=== PATIENT | female | born 1990 | race Caucasian/White ===

== ENCOUNTER 2021-12-04 14:48 | Emergency (ER) | payer MEDICAID ==
[2021-12-04 18:47] LABS: CARBON DIOXIDE,CO2 25.7 mmol/L (21.0-32.0); POTASSIUM,K 3.6 mmol/L (3.5-5.1)
== END 2021-12-04 18:23 | disposition home or self-care (01) ==
LOC: MW.ED 14:48
DX: O46.91 Antepartum hemorrhage, unspecified, first trimester (principal); Z88.0 Allergy status to penicillin; Z88.8 Allergy status to other drugs, medicaments and biological substances; Z3A.12 12 weeks gestation of pregnancy
CPT/HCPCS: 36415; 80048; 81003; 84702; 85025; 86900; 86901; 99283; 99284

== ENCOUNTER 2021-12-08 16:46 | Emergency (ER) | payer MEDICAID ==
[2021-12-08] MEDS ORDERED: Acetaminophen 325 MG Tab PO ONE (18:06)
== END 2021-12-08 18:29 | disposition home or self-care (01) ==
LOC: MW.ED 16:46
DX: O26.891 Other specified pregnancy related conditions, first trimester (principal); M25.561 Pain in right knee; R51.9 Headache, unspecified; Z3A.12 12 weeks gestation of pregnancy; Z79.899 Other long term (current) drug therapy; Z88.8 Allergy status to other drugs, medicaments and biological substances; Z88.0 Allergy status to penicillin
CPT/HCPCS: 99282; 99283

== ENCOUNTER 2022-05-30 14:08 | Emergency (ER) | payer MEDICAID ==
[2022-05-30 17:41] LABS: CORONAVIRUS COVID-19 NAA NEGATIVE (NEGATIVE); INFLUENZA A NAA POSITIVE (NEGATIVE); INFLUENZA B NAA NEGATIVE (NEGATIVE)
[2022-05-30] MEDS ORDERED: Oseltamivir 75 MG Cap PO ONE (18:20)
== END 2022-05-30 18:43 | disposition home or self-care (01) ==
LOC: MW.ED 14:08
DX: O99.513 Diseases of the respiratory system complicating pregnancy, third trimester (principal); J10.1 Influenza due to other identified influenza virus with other respiratory manifestations; Z3A.37 37 weeks gestation of pregnancy; Z88.6 Allergy status to analgesic agent; Z88.0 Allergy status to penicillin; Z91.013 Allergy to seafood; Z88.5 Allergy status to narcotic agent; Z79.899 Other long term (current) drug therapy; Z79.82 Long term (current) use of aspirin; Z20.822 Contact with and (suspected) exposure to COVID-19
CPT/HCPCS: 0240U; 87651; 99283; A9270

== ENCOUNTER 2022-08-26 17:19 | Emergency (ER) | payer MEDICAID ==
[2022-08-26 20:34] LABS: CORONAVIRUS COVID-19 NAA NEGATIVE (NEGATIVE); INFLUENZA A NAA NEGATIVE (NEGATIVE); INFLUENZA B NAA NEGATIVE (NEGATIVE)
== END 2022-08-26 20:30 | disposition home or self-care (01) ==
LOC: MW.ED 17:19
DX: J02.9 Acute pharyngitis, unspecified (principal); M54.6 Pain in thoracic spine; J45.909 Unspecified asthma, uncomplicated; Z79.899 Other long term (current) drug therapy; Z88.6 Allergy status to analgesic agent; Z88.0 Allergy status to penicillin; Z88.5 Allergy status to narcotic agent; Z91.013 Allergy to seafood; Z20.822 Contact with and (suspected) exposure to COVID-19
CPT/HCPCS: 0240U; 99283